=== PATIENT | female | born 1950 | race Caucasian/White ===

== ENCOUNTER 2023-05-19 12:03 | Outpatient (CLI) | payer BC, SELFPAY | END 2023-05-19 12:04 | disposition home or self-care (01) | LOC: NFLDREF 05-21 20:03 | PROVIDERS: Visit Provider Family Medicine | DX: R30.0 Dysuria (principal); N39.0 Urinary tract infection, site not specified; B37.31 Acute candidiasis of vulva and vagina; N30.00 Acute cystitis without hematuria | CPT/HCPCS: 87086 ==